=== PATIENT | male | born 1950 | race African-American/Black ===

== ENCOUNTER 2016-06-20 23:25 | Emergency (ER) | payer MEDICARE, OTHER ==
[2016-06-21 00:05] VITALS: BP 148/95; PULSE 77; TEMP 97.1; BMI 39.4
--- NOTE | 2016-06-21 00:26 | PDOC ---
History of Present Illness - General History Source: Patient Exam Limitations: No Limitations - History of Present Illness Initial Comments: 06/21/16 01:06 The patient is a 66 year old male with significant past medical history of CAD s /p stents x6, arteriosclerosis hyperlipidemia, hypertension, and hep b who presents to the ED for urinary retention about 2.5 hours ago. Patient had a prostate biopsy done yesterday at his urologists office in [place]. Reports he has been urinating all week and has noted clots in his urine. However, he was unable to urinate since 2.5 hours ago. The patient denies fever, chills, cough, SOB, chest pain, and palpitations. The patient denies abdominal pain, nausea, vomiting, and diarrhea. Allergies: NKDA Social History: No alcohol, tobacco, or drug use reported. Past Surgical History: s/p cardiac stents x6 PCP: Dr. David Bass <Jennifer Vallejo - Last Filed: 06/21/16 01:18> - General History Source: Patient <Wesley Arrieta - Last Filed: 06/21/16 01:36> - General Chief Complaint: Urinary Problem Stated Complaint: URINARY PROBLEM Time Seen by Provider: 06/21/16 00:07 Past History <Jennifer Vallejo - Last Filed: 06/21/16 01:18> - Past Medical History Cardiac Disorders: Yes HTN: Yes Hypercholesterolemia: Yes Liver Disease: Yes (HEPATITIS B) - Psycho/Social/Smoking Cessation Hx Anxiety: No Suicidal Ideation: No Smoking History: Never smoked Have you smoked in the past 12 months: No If you are a former smoker, when did you quit?: 1998 Information on smoking cessation initiated: No Hx Alcohol Use: No Drug/Substance Use Hx: No Substance Use Type: None <Wesley Arrieta - Last Filed: 06/21/16 01:36> - Past Medical History Allergies/Adverse Reactions: Allergies Allergy/AdvReac Type Severity Reaction Status Date / Time No Known Allergies Allergy Verified 06/21/16 00:03 Home Medications: Ambulatory Orders Amlodipine Besylate [Norvasc -] 10 mg PO DAILY 11/23/13 Aspirin [ASA -] 81 mg PO DAILY 11/23/13 Atorvastatin Ca [Lipitor] 40 mg PO HS 11/23/13 Hydroxyzine Pamoate [Vistaril -] 25 mg PO TID #21 capsule 11/23/13 Metoprolol Tartrate [Lopressor -] 25 mg PO BID 11/23/13 Naproxen [Naprosyn -] 500 mg PO BID #14 tablet 11/23/13 Oxycodone HCl/Acetaminophen [Percocet 5-325 mg Tablet -] 1 - 2 tab PO Q4H PRN # 20 tablet 04/12/14 Review of Systems - Review of Systems Able to Perform ROS?: Yes Comments:: 06/21/16 01:07 CONSTITUTIONAL: Absent: fever, no chills, no fatigue EYES: Absent: visual changes ENT: Absent: ear pain, no sore throat CARDIOVASCULAR: Absent: chest pain, no palpitations RESPIRATORY: Absent: cough, no SOB GI: Absent: abdominal pain, no nausea, no vomiting, no constipation, no diarrhea GENITOURINARY: Absent: dysuria, no frequency, no hematuria MUSCULOSKELETAL: Absent: back pain, no arthralgia, no myalgia SKIN: Absent: rash NEURO: Absent: headache <Jennifer Vallejo - Last Filed: 06/21/16 01:18> *Physical Exam - Vital Signs Last Vital Signs Temp Pulse Resp BP Pulse Ox 97.1 F L 77 22 148/95 99 06/21/16 00:03 06/21/16 00:03 06/21/16 00:03 06/21/16 00:03 06/21/16 00:03 - Physical Exam Comments: 06/21/16 01:07 GENERAL: Well-appearing, well-nourished. Moderate distress. HEENT: Normocephalic, atraumatic. PERRL, EOM intact. CARDIOVASCULAR: Normal S1, S2. Regular rate and rhythm. PULMONARY: Clear to auscultation bilaterally. ABDOMEN: Soft, slightly distended, suprapubic tenderness. EXTREMITIES: Normal ROM in all four extremities. No gross deformities. SKIN: Warm, dry. No rash NEUROLOGICAL: No focal neurological deficits. <Jennifer Vallejo - Last Filed: 06/21/16 01:18> - Vital Signs Last Vital Signs Temp Pulse Resp BP Pulse Ox 97.1 F L 77 22 148/95 99 06/21/16 00:03 06/21/16 00:03 06/21/16 00:03 06/21/16 00:03 06/21/16 00:03 <Wesley Arrieta - Last Filed: 06/21/16 01:36> Medical Decision Making - Medical Decision Making 06/21/16 01:[address] and drained 500 cc of blood tinge urine. <Jennifer Vallejo - Last Filed: 06/21/16 01:18> - Medical Decision Making 06/21/16 01:35 Dr. Arrieta: The scribe's documentation has been prepared under my direction and personally reviewed by me in its entirery. I confirm that the note above accurately reflects all work, treatment, procedures, and medical decision making performed by me. <Wesley Arrieta - Last Filed: 06/21/16 01:36> *DC/Admit/Observation/Transfer - Attestations Scribe Attestion: 06/21/16 01:07 Documentation prepared by Jennifer Vallejo, acting as nuclear medicine medical director for Wesley Arrieta MD <Jennifer Vallejo - Last Filed: 06/21/16 01:18> - Discharge Dispostion Admit: No <Wesley Arrieta - Last Filed: 06/21/16 01:36> Diagnosis at time of Disposition: Urinary retention, Hematuria - Discharge Dispostion Disposition: HOME Condition at time of disposition: Improved - Referrals Referrals: David Bass MD [Primary Care Provider] - Diogenes Dos Santos MD [Staff Physician] - - Patient Instructions Printed Discharge Instructions: DI for Urinary Retention in Men, DI for Hematuria Additional Instructions: Please continue the antibiotic you are already on. Follow up with your urologist tomorrow.
[2016-06-21 01:28] LABS: URINE APPEARANCE CLEAR; URINE BILIRUBIN NEGATIVE (NEGATIVE); URINE COLOR RED; URINE GLUCOSE (UA) NEGATIVE (NEGATIVE); URINE KETONE NEGATIVE (NEGATIVE); URINE LEUK ESTERASE NEGATIVE (NEGATIVE); URINE NITRITE NEGATIVE (NEGATIVE); URINE UROBILINOGEN NEGATIVE E.U./dl (0.2-1.0)
[2016-06-21 01:29] LABS: URINE BLOOD 2+ (NEGATIVE); URINE PROTEIN 2+ (NEGATIVE)
[2016-06-21 01:50] LABS: URINE BACTERIA RARE /hpf (NONE SEEN); URINE RBC 44 /hpf (0-3); URINE WBC 10 /hpf (3-5)
== END 2016-06-21 02:05 | disposition home or self-care (01) ==
LOC: JER 23:25
PROC: 0T9B70Z Drainage of Bladder with Drainage Device, Via Natural or Artificial Opening (ICD-10-PCS; principal; 2016-06-20)
DX: R33.9 Retention of urine, unspecified (principal)
CPT/HCPCS: 81003; 81015; 87086; 99282-25

== ENCOUNTER 2020-08-07 12:57 | Emergency (ER) | payer MEDICARE, OTHER ==
[2020-08-07 13:05] VITALS: BP 143/77; PULSE 65; TEMP 98.7; BMI 37.8
[2020-08-07] MEDS ORDERED: FAMOTIDINE 20 MG TABLET PO ONE (13:57)
[2020-08-07] MEDS ORDERED: MAG HYDROX/AL HYDROX/SIMETH 30 ML UNIT-DOSE CUP PO ONE (13:57)
[2020-08-07] MEDS ORDERED: FAMOTIDINE 20 MG TABLET ONE (14:12)
[2020-08-07] MEDS ORDERED: MAG HYDROX/AL HYDROX/SIMETH 30 ML UNIT-DOSE CUP ONE (14:13)
== END 2020-08-07 17:27 | disposition home or self-care (01) ==
LOC: JER 12:57
DX: K29.00 Acute gastritis without bleeding (principal)
CPT/HCPCS: 71046-TC-FY; 99283-25